=== PATIENT | male | born 1950 | race Caucasian/White ===

== ENCOUNTER 2021-11-13 16:24 | Inpatient (IN) ==
[2021-11-13 17:11] LABS: Basophils # (auto) 0.01 K/uL (0-0.2); Basophils % (auto) 0.1 %; Eosinophils # (auto) 0.17 K/uL (0-0.5); Eosinophils % (auto) 1.7 %; Hematocrit (blood only) 41.5 % (42-52); Hemoglobin 13.4 g/dL (14.0-18.0); Immature Granulocytes # (auto) 0.05 K/uL (0.00-0.02); Immature Granulocytes % (auto) 0.5 %; Lymphocytes % (auto) 9.8 %; Mean Corpuscular Hemoglobin 25.6 pg (25-34); Mean Corpuscular Hgb Conc 32.3 g/dL (32-36); Mean Corpuscular Volume 79.2 fL (80-100); Mean Platelet Volume 9.8 fL (7.4-10.4); Monocytes # (auto) 1.28 K/uL (0.11-0.59); Monocytes % (auto) 12.6 %; Neutrophils # (auto) 7.68 K/uL (1.4-6.5); Neutrophils % (auto) 75.3 %; Platelet Count 261 K/uL (130-400); RDW Coefficient of Variation 17.1 % (11.5-14.5); RDW Standard Deviation 49.2 fL (36.4-46.3); Red Blood Count 5.24 M/uL (4.7-6.1); White Blood Count 10.19 K/uL (4.8-10.8)
[2021-11-13 17:26] LABS: Albumin Globulin Ratio 0.7 (0.9-2); Albumin Level 3.6 gm/dl (3.4-5.0); BUN Creatinine Ratio 17.1 (10-20); Bilirubin,Total 0.7 mg/dl (0.2-1.0); Creatinine Clr Calc Pharmacy 88.6 ml/min; Est GFR (Non-African American) 71.6 ml/min; Globulin 5.2 gm/dl (2.5-4.0); Magnesium 1.8 mg/dl (1.7-2.4); Potassium 3.4 mmol/L (3.5-5.1); Total Protein 8.8 gm/dl (6.0-8.3)
[2021-11-13] MEDS ORDERED: cefTRIAXone SODIUM 2,000 MG/70 ML BAG IV STA (17:37)
[2021-11-13] MEDS ORDERED: PIPERACILLIN/TAZOBACTAM 4.5 GM/120 ML BAG IV ONE (17:38)
[2021-11-13] MEDS ORDERED: PIPERACILL/TAZOBAC CONSULT ACTIVE PRN (17:38)
--- NOTE | 2021-11-13 17:55 | XRay Report ---
XR chest 1V portable HISTORY: 71 years-old Male weakness acute weakness COMPARISON: None TECHNIQUE: AP view of the chest FINDINGS: The cardiomediastinal and hilar silhouettes are within normal limits. No pneumothorax, pleural effusi on, airspace consolidation or overt pulmonary edema. Hiatal hernia. Degenerative changes of the shoul ders and spine IMPRESSION: No acute process. ACT 112: Negative or not required by law. The above report was generated using voice recognition software. It may contain grammatical, syntax o r spelling errors. Electronically signed by: Shaka Dexter M.D. 11/13/2021 5:52 PM
[2021-11-13 17:57] LABS: Influenza A virus by PCR Negative (Neg); Influenza B virus by PCR Negative (Neg); RSV by PCR Negative (Neg); SARS CoV2 RNA(COVID-19) InHosp NEGATIVE (Negative)
[2021-11-13] MEDS ORDERED: POTASSIUM CHLORIDE CRTAB 20 MEQ TABCR PO STA (21:04)
--- NOTE | 2021-11-13 22:26 | Emergency Department Note ---
Impression & Plan Cellulitis, Venous stasis dermatitis of lower extremity ED Provider Note CHIEF COMPLAINT: Left lower extremity infection HISTORY OF PRESENT ILLNESS: This 71-year-old male patient presents to the emergency department via ambulance with his brother. The patient's and his brother are both checked in this patient due to chronic lower extremity wounds. Patient states the home health nurse was at their house today and evaluated the patient's legs. She was able to wrap the right lower extremity however the left lower extremity seems to be worsening. By report the patient's home is in depl orable condition. Apparently the nurse will only see the patient's outside of the home on the porch. By the patient's report he does not see the primary care physician frequently wound care clinic is "useless." She gets much of his care in [place]. He denies recently being on antibiotics. Patient denies any fevers, chills, chest pain or shortness of breath. REVIEW OF SYSTEMS: A review of systems was performed with positives and pertinent negatives listed in the history of present illness. 10 systems were reviewed and are otherwise negative. ALLERGIES: see below MEDICATIONS: see below PMH: see below SOCIAL HISTORY: see below DDx: DVT, musculoskeletal, infection, joint effusion, trauma, lymphedema, idiopathic, CHF, as well as other pathologies. PHYSICAL EXAM: Vital signs reviewed. General: Chronically ill-appearing, 71-year-old male, disheveled, unkempt but in no significant distress. HEENT: No scleral icterus, PERRLA, neck supple. Atraumatic. Cardiovascular: Regular rate and rhythm, no extra sounds. Pulmonary: Clear to auscultation bilaterally, normal work of breathing. Abdomen: Soft, obese, nontender, nondistended, positive bowel sounds. Musculoskeletal: Atraumatic, significant bilateral lower extremity edema. Left lower extremity with macerated tissue and active oozing. There is an ulcerated area to the left upper portion of the distal lower extremity. This is likely venous stasis changes. Chronic skin plaquing noted right greater than left. Neurologic: Patient awake alert and oriented x 3, speech is clear Skin: Warm, dry, no rash EMERGENCY DEPARTMENT COURSE/MDM: This patient was evaluated and appeared to be in no significant distress. Patient was notably unkempt and hygiene is poor. IV access was obtained and laboratory work was drawn. Blood cultures are pending. WBC and lactate are within normal limits. The patient was medicated w ith IV Zosyn. Given the patient's poor hygiene, multiple medical problems and difficult social situation, it was felt in the patient's best interest to address the 50% left lower extremity cellulitis with hospitalization. MONITORING: An order for cardiac monitoring was placed and the patient is noted to be in a NSR at 95 beats per minute. RADIOLOGY: see below EKG: NSR at 91 bpm, premature supraventricular complexes, possible previous inferior infarct. No acute ST segment change. Normal axis. 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 Beliefs That Will Affect Care: None Current Living Situation: Spouse and Family Current Living Situation Comment: lives at home with and brother Other Information That Helps Us Care for You: No Feels Safe at Home: Yes Safety Concerns: Feels Safe At This Time Assistive Devices: Cane Allergies Allergies Allergy/AdvReac Type Severity Reaction Status Date / Time adhesive tape Allergy Intermediate RASH/IRRITATION--PAPER Verified 11/13/21 17:14 TAPE OK Home Meds Home Medications Medication Instructions Recorded Confirmed Iron W/Vitamin C 1 tab PO DAILY 11/13/21 11/13/21 cyanocobalamin (vitamin B-12) 1,000 mcg PO DAILY 11/13/21 11/13/21 1,000 mcg tablet (Vitamin B-12) docusate sodium 100 mg capsule 100 mg PO DAILY 11/13/21 11/13/21 (Colace) finasteride 5 mg tablet 5 mg PO DAILY 11/13/21 11/13/21 furosemide 40 mg tablet (Lasix) 40 mg PO BID 11/13/21 11/13/21 omeprazole 40 mg capsule,delayed 40 mg PO DAILY 11/13/21 11/13/21 release potassium chloride 10 mEq 30 meq PO DAILY 11/13/21 11/13/21 capsule,extended release rosuvastatin 5 mg tablet 5 mg PO DAILY 11/13/21 11/13/21 sodium hypochlorite 0.25 % solution 1 irrig TOPICAL DIRECTED PRN 11/13/21 11/13/21 tamsulosin 0.4 mg capsule (Flomax) 0.4 mg PO DAILY 11/13/21 11/13/21 Results & Data (ED) Vital Signs Vital Signs - 24 hr 11/13/21 16:36 11/13/21 17:16 11/13/21 19:09 Temperature 36.7 C Temperature Source Oral Pulse Rate 109 H Pulse Rate [Right Finger] 93 H 94 H Pulse Rhythm Regular Pulse Rhythm [Right Finger] Regular Pulse Strength Normal Pulse Strength [Right Finger] Normal Respiratory Rate 20 18 20 Respiratory Effort / Characteristics Non-Labored Spontaneous Non-Labored Respiratory Depth Normal Normal Normal Respiratory Pattern Regular Blood Pressure 119/82 Blood Pressure [Right Arm] 119/62 121/87 Blood Pressure Mean 94 Blood Pressure Mean [Right Arm] 81 98 Blood Pressure Position Sitting Blood Pressure Position [Right Arm] Lying Pulse Oximetry 95 96 98 Oxygen Delivery Method Room Air Room Air Room Air Sepsis Recent Fever Within 48 Hours No Sepsis New/Unexplained Change in Mental Status N/A Sepsis Action Taken by Nursing No Action Required Home Medications Current Medication List: was personally reviewed by me Laboratory Data Attestation: I reviewed the patient's lab results. Result diagrams: 11/14/21 05:17 11/14/21 05:17 Lab Results 11/13/21 11/13/21 11/13/21 Range/Units 16:38 16:38 16:38 WBC 10.19 (4.8-10.8) K/uL RBC 5.24 (4.7-6.1) M/uL Hgb 13.4 L (14.0-18.0) g/dL Hct 41.5 L (42-52) % MCV 79.2 L (80-100) fL MCH 25.6 (25-34) pg MCHC 32.3 (32-36) g/dL RDW Std Deviation 49.2 H (36.4-46.3) fL RDW Coeff of Anjelica 17.1 H (11.5-14.5) % Plt Count 261 (130-400) K/uL MPV 9.8 (7.4-10.4) fL Immature Gran % (Auto) 0.5 % Neut % (Auto) 75.3 % Lymph % (Auto) 9.8 % [place] % (Auto) 12.6 % Eos % (Auto) 1.7 % Baso % (Auto) 0.1 % Neut # (Auto) 7.68 H (1.4-6.5) K/uL Lymph # (Auto) 1.00 L (1.2-3.4) K/uL [place] # (Auto) 1.28 H (0.11-0.59) K/uL Eos # (Auto) 0.17 (0-0.5) K/uL Baso # (Auto) 0.01 (0-0.2) K/uL Immature Gran # (Auto) 0.05 H (0.00-0.02) K/uL Sodium 136 (136-145) mmol/L Potassium 3.4 L (3.5-5.1) mmol/L Chloride 99 (98-107) mmol/L Carbon Dioxide 27 (21-32) mmol/L Anion Gap 10 (3-11) BUN 18 (6-23) mg/dl Creatinine 1.05 (0.6-1.4) mg/dl Est Cr Clr Drug Dosing 88.6 ml/min Est GFR ( Amer) 83.0 ml/min Est GFR (Non-Af Amer) 71.6 ml/min BUN/Creatinine Ratio 17.1 (10-20) Glucose 102 H (70-99(Fasting)) mg/dl Lactate (0.4-2.0) mmol/L Calcium 9.0 (8.5-10.1) mg/dl Magnesium 1.8 (1.7-2.4) mg/dl Total Bilirubin 0.7 (0.2-1.0) mg/dl AST 13 (13-39) U/L ALT 9 (7-52) U/L Alkaline Phosphatase 60 (34-104) U/L Troponin I High Sens 5.0 (0-20) pg/ml Total Protein 8.8 H (6.0-8.3) gm/dl Albumin 3.6 (3.4-5.0) gm/dl Globulin 5.2 H (2.5-4.0) gm/dl Albumin/Globulin Ratio 0.7 L (0.9-2) TSH 1.598 (0.300-4.500) uIu/ml SARS-CoV-2 (PCR) (Negative) Influenza Type A (PCR) (Neg) Influenza Type B (PCR) (Neg) RSV (RT-PCR) (Neg) 11/13/21 11/13/21 Range/Units 17:01 17:31 WBC (4.8-10.8) K/uL RBC (4.7-6.1) M/uL Hgb (14.0-18.0) g/dL Hct (42-52) % MCV (80-100) fL MCH (25-34) pg MCHC (32-36) g/dL RDW Std Deviation (36.4-46.3) fL RDW Coeff of Anjelica (11.5-14.5) % Plt Count (130-400) K/uL MPV (7.4-10.4) fL Immature Gran % (Auto) % Neut % (Auto) % Lymph % (Auto) % [place] % (Auto) % Eos % (Auto) % Baso % (Auto) % Neut # (Auto) (1.4-6.5) K/uL Lymph # (Auto) (1.2-3.4) K/uL [place] # (Auto) (0.11-0.59) K/uL Eos # (Auto) (0-0.5) K/uL Baso # (Auto) (0-0.2) K/uL Immature Gran # (Auto) (0.00-0.02) K/uL Sodium (136-145) mmol/L Potassium (3.5-5.1) mmol/L Chloride (98-107) mmol/L Carbon Dioxide (21-32) mmol/L Anion Gap (3-11) BUN (6-23) mg/dl Creatinine (0.6-1.4) mg/dl Est Cr Clr Drug Dosing ml/min Est GFR ( Amer) ml/min Est GFR (Non-Af Amer) ml/min BUN/Creatinine Ratio (10-20) Glucose (70-99(Fasting)) mg/dl Lactate 1.3 (0.4-2.0) mmol/L Calcium (8.5-10.1) mg/dl Magnesium (1.7-2.4) mg/dl Total Bilirubin (0.2-1.0) mg/dl AST (13-39) U/L ALT (7-52) U/L Alkaline Phosphatase (34-104) U/L Troponin I High Sens (0-20) pg/ml Total Protein (6.0-8.3) gm/dl Albumin (3.4-5.0) gm/dl Globulin (2.5-4.0) gm/dl Albumin/Globulin Ratio (0.9-2) TSH (0.300-4.500) uIu/ml SARS-CoV-2 (PCR) NEGATIVE (Negative) Influenza Type A (PCR) Negative (Neg) Influenza Type B (PCR) Negative (Neg) RSV (RT-PCR) Negative (Neg) Administered Medications Ascorbic Acid (Ascorbic Acid 500 Mg Tab) [facility]: 12/14/21 08:59 Last Admin: 11/14/21 07:52 Dose: 250 mg Documented by: [id number] Cyanocobalamin (Cyanocobalamin (B-12) 500 Mcg Tablet) 1,000 mcg PO DAILY [facility] Stop: 12/14/21 08:59 Last Admin: 11/14/21 07:53 Dose: 1,000 mcg Documented by: [id number] Docusate Sodium (Docusate Sodium 100 Mg Cap) 100 mg PO DAILY [facility] Stop: 12/14/21 08:59 Last Admin: 11/14/21 07:53 Dose: 100 mg Documented by: [id number] Enoxaparin Sodium (Enoxaparin Inj 40 Mg/0.4 Ml Syr) 40 mg SQ Q12H [facility] Stop: 12/14/21 00:00 Last Admin: 11/14/21 00:17 Dose: 40 mg Documented by: [id number] Ferrous Sulfate (Ferrous Sulfate 325 Mg Tab) 325 mg PO QAM [facility] Stop: 12/14/21 08:59 Last Admin: 11/14/21 07:53 Dose: 325 mg Documented by: [id number] Finasteride (Finasteride 5 Mg Tab) 5 mg PO DAILY [facility] Stop: 12/14/21 08:59 Last Admin: 11/14/21 07:54 Dose: 5 mg Documented by: [id number] Furosemide (Furosemide 40 Mg Tab) 40 mg PO [id number] [facility] Stop: 12/13/21 23:20 Last Admin: 11/14/21 07:53 Dose: 40 mg Documented by: [id number] Admin: 11/13/21 23:37 Dose: Not Given Documented by: [id number] Daptomycin 400 mg/ Syringe 8 mls @ 4 mls/min IV Q24H [facility]; Protocol Stop: 11/21/21 00:00 Last Admin: 11/14/21 00:15 Dose: 4 mls/min Documented by: [id number] Piperacillin Sod/Tazobactam (Sod 4.5 gm/ Dextrose) 120 mls @ 30 mls/hr IV Q8H [facility]; Protocol Stop: 11/21/21 00:00 Last Admin: 11/14/21 07:51 Dose: 30 mls/hr Documented by: [id number] Infusion: 11/14/21 04:48 Dose: 0 mls/hr Documented by: [id number] Admin: 11/14/21 00:18 Dose: 30 mls/hr Documented by: [id number] Pantoprazole Sodium (Pantoprazole 40 Mg Tab) 40 mg PO DAILY [facility] Stop: 12/14/21 08:59 Last Admin: 11/14/21 07:54 Dose: 40 mg Documented by: [id number] Potassium Chloride (Potassium Chloride 10 Meq Tabcr) 30 meq PO DAILY [facility] Stop: 12/14/21 08:59 Last Admin: 11/14/21 07:53 Dose: 30 meq Documented by: [id number] Tamsulosin HCl (Tamsulosin Hcl 0.4 Mg Cap) 0.4 mg PO DAILY [facility] Stop: 12/14/21 08:59 Last Admin: 11/14/21 07:54 Dose: 0.4 mg Documented by: [id number] Discontinued Medications Ceftriaxone Sodium (Rocephin) 2,000 mg in 70 mls @ 140 mls/hr IV NOW STA Stop: 11/13/21 18:06 Last Infusion: 11/13/21 18:23 Dose: 0 mls/hr Documented by: [id number] Admin: 11/13/21 17:49 Dose: 140 mls/hr Documented by: [id number] Piperacillin Sod/Tazobactam Sod (Zosyn) 4.5 gm in 120 mls @ 240 mls/hr IV NOW ONE Stop: 11/13/21 18:07 Last Infusion: 11/13/21 19:17 Dose: 0 mls/hr Documented by: [id number] Admin: 11/13/21 18:20 Dose: 240 mls/hr Documented by: [id number] Potassium Chloride (Potassium Chloride Crtab 20 Meq Tabcr) 20 meq PO NOW STA Stop: 11/13/21 21:05 Last Admin: 11/13/21 21:15 Dose: 20 meq Documented by: [id number] Imaging Data Radiologist's Impression: Chest X-Ray 11/13/21 16:50 XR chest 1V portable HISTORY: 71 years-old Male weakness acute weakness COMPARISON: None TECHNIQUE: AP view of the chest FINDINGS: The cardiomediastinal and hilar silhouettes are within normal limits. No pneumothorax, pleural effusion, airspace consolidation or overt pulmonary edema. Hiatal hernia. Degenerative changes of the shoulders and spine IMPRESSION: No acute process. ACT 112: Negative or not required by law. The above report was generated using voice recognition software. It may contain grammatical, syntax or spelling errors. Electronically signed by: Shaka Dexter M.D. 11/13/2021 5:52 PM Blood Pressure Blood Pressure Findings: Normal blood pressure Blood Pressure Disposition: did not require urgent referral Discharge Plan Visit Data Chief Complaint: Skin Problem ED Provider: Leela Hearn Discharge Problem: Cellulitis, Venous stasis dermatitis of lower extremity Patient Disposition: Admitted As Inpatient Discharge Instructions Interventions: ED Discharge Assessment Last Done: 11/13/21 22:33 Discharge Problem: Cellulitis Qualifiers: Site of cellulitis: extremity Site of cellulitis of extremity: lower extremity Laterality: left Qualified Code(s): L03.116 - Cellulitis of left lower limb
[2021-11-13] MEDS ORDERED: ACETAMINOPHEN 325 MG TAB PO PRN (23:21)
[2021-11-13] MEDS ORDERED: POLYETHYLENE (MIRALAX) 17 GM PACK PO PRN (23:21)
--- NOTE | 2021-11-13 23:28 | History and Physical Report ---
DATE OF ADMISSION: 11/13/2021. CHIEF COMPLAINT: Lower extremity cellulitis. HISTORY OF PRESENT ILLNESS: This is a 71-year-old male with past medical history significant for mixed hyperlipidemia, prediabetes, chronic venous insufficiency with grade 1 diastolic dysfunction, morbid obesity, GERD, history of renal colic, peripheral edema, onychogryphosis, iron deficiency anemia, history of esophagitis, history of COVID, severe acute respiratory syndrome secondary to COVID, presents with lower extremity cellulitis. The patient has lower extremity chronic skin changes, dry skin, edema. He says he has on and off infection going on for 1 year, now his left lower extremity has become very red, and that is the reason he came to the hospital. Denies any fever or chills. Able to ambulate on the leg. No other complaints. Currently, resting comfortably and hemodynamically stable. Denies any headache. No blurred visions, no earache, no runny nose, no sore throat, no cough, no neck pain, no chest pain. Gets short of breath on exertion. No nausea, no vomiting, no abdominal pain. Normal bowel and bladder movements. ALLERGIES: ADHESIVE TAPE. PAST MEDICAL HISTORY: As mentioned above. PAST SURGICAL HISTORY: Colonoscopy, cystoscopy, EGD, partial colectomy with coloproctostomy, inguinal hernia repair. MEDICATIONS: The patient is on vitamin B12 1000 mcg p.o. daily, Colace 100 mg p.o. daily, finasteride 5 mg p.o. daily, Lasix 40 mg p.o. b.i.d., iron plus vitamin C one tablet p.o. daily, omeprazole 40 mg p.o. daily, potassium chloride 30 mEq p.o. daily, rosuvastatin 5 mg p.o. daily, Flomax 0.4 mg p.o. daily. FAMILY HISTORY: Significant for brother has venous insufficiency. SOCIAL HISTORY: and lives with his and his brother. No smoking, no alcohol, no drug use. REVIEW OF SYSTEMS: As per HPI. Rest of review of systems negative. PHYSICAL EXAMINATION: GENERAL: The patient is morbidly obese, not in acute distress. VITAL SIGNS: Temperature 36.7, pulse 94, respiratory rate 20, blood pressure 121/87, oxygen 98% on room air. HEENT: Pupils equal, round and reactive to light. Oral mucosa moist. NECK: No JVD, no neck masses. CARDIOVASCULAR: S1 and S2 heard. Regular rate and rhythm. No murmur, no gallop. RESPIRATORY SYSTEM: Normal AP diameter. No accessory muscle use. No wheezing, no crackles. ABDOMEN: Soft, bowel sounds present, nontender, no distention. CENTRAL NERVOUS SYSTEM: Cranial nerves II through XII are grossly intact, nonfocal. EXTREMITIES: Bilateral lower extremity chronic skin changes seen. Right leg has dry skin seen. Bilateral lower extremity edema present. Left leg below knee whole leg is erythematous. LABORATORY DATA: WBC 10.1, hemoglobin 13.4, hematocrit 41.5, platelets 261. Sodium 136, potassium 3.4, chloride 99, bicarbonate 27, BUN 18, creatinine 1.05. Serum glucose 102. Lactate 1.3, calcium 9, magnesium 1.8, total bilirubin 0.7, AST 13, ALT 9, alkaline phosphatase 60. Troponin I high sensitivity 5. TSH 1.5. SARS-CoV-2 PCR negative. Influenza A and B PCR negative. RSV PCR negative. IMAGING DATA: Chest x-ray, no acute process. EKG: Normal sinus rhythm with PACs at a rate of 91, no previous EKGs available. ASSESSMENT AND PLAN: This 71-year-old male presents with lower extremity cellulitis. 1. Left lower extremity cellulitis: Empirically starting on daptomycin and Zosyn. Wound care. Follow the cultures. Follow the response. Monitor in the medical floor. 2. Chronic diastolic congestive heart failure: Continue his home Lasix with potassium supplement. Monitor for any volume overload. 3. History of benign prostatic hypertrophy: Continue finasteride and Flomax. 4. Prediabetes: Follow the HbA1c level, diabetic diet. 5. Gastroesophageal reflux disease: Continue omeprazole. 6. Hyperlipidemia: Holding statin while the patient is on daptomycin. 7. Deep venous thrombosis prophylaxis: Lovenox. 8. Morbid obesity: Needs counseling. DISPOSITION: Monitor in the [facility] tele. PT/OT prior to discharge. Social service to help with discharge planning. Level I full code. Job ID: [id number] [facility]
[2021-11-13] MEDS: FUROSEMIDE 40 MG TAB PO SCH (23:37)
[2021-11-14] MEDS: DAPTOmycin 400 MG in SYRINGE 0 ML IV SCH (00:15)
[2021-11-14] MEDS: ENOXAPARIN INJ 40 MG/0.4 ML SYR SQ SCH ×2 (00:17→12:04)
[2021-11-14] MEDS: PIPERACILLIN/TAZOBACTAM 4.5 GM in DEXTROSE 5% 100 ML IV SCH ×3 (00:18→17:02)
[2021-11-14 05:46] LABS: Basophils # (auto) 0.01 K/uL (0-0.2); Basophils % (auto) 0.1 %; Eosinophils # (auto) 0.15 K/uL (0-0.5); Eosinophils % (auto) 1.8 %; Hematocrit (blood only) 38.3 % (42-52); Hemoglobin 12.3 g/dL (14.0-18.0); Immature Granulocytes # (auto) 0.03 K/uL (0.00-0.02); Immature Granulocytes % (auto) 0.4 %; Lymphocytes # (auto) 1.35 K/uL (1.2-3.4); Lymphocytes % (auto) 16.1 %; Mean Corpuscular Hgb Conc 32.1 g/dL (32-36); Mean Platelet Volume 9.9 fL (7.4-10.4); Monocytes # (auto) 1.05 K/uL (0.11-0.59); Monocytes % (auto) 12.5 %; Neutrophils # (auto) 5.79 K/uL (1.4-6.5); Neutrophils % (auto) 69.1 %; Platelet Count 231 K/uL (130-400); RDW Coefficient of Variation 17.1 % (11.5-14.5); RDW Standard Deviation 51.3 fL (36.4-46.3); Red Blood Count 4.73 M/uL (4.7-6.1); White Blood Count 8.38 K/uL (4.8-10.8)
[2021-11-14 06:25] LABS: BUN Creatinine Ratio 19.8 (10-20); Calcium 8.6 mg/dl (8.5-10.1); Creatinine Clr Calc Pharmacy 100.6 ml/min; Est GFR (African American) 98.6 ml/min; Est GFR (Non-African American) 85.1 ml/min; Potassium 3.4 mmol/L (3.5-5.1)
[2021-11-14 06:28] LABS: Appearance Urine Clear (Clear); Bacteria Urine Automated Negative (Negative); Bilirubin Urine Negative (Negative); Blood Urine Negative (Negative); Color Urine Yellow; Glucose Urine UA Negative (Negative); Ketones Urine Negative (Negative); Leukocyte Esterase Urine Trace (Negative); Nitrite Urine Negative (Negative); Protein Urine Negative (Negative); RBC Urine Automated 0-4 /hpf (0-4); Specific Gravity Urine 1.024 (1.000-1.030); Urobilinogen Urine Negative (Negative)
[2021-11-14] MEDS: ASCORBIC ACID 500 MG TAB PO SCH (07:52)
[2021-11-14] MEDS: CYANOCOBALAMIN (B-12) 500 MCG TABLET PO SCH (07:53)
[2021-11-14] MEDS: FUROSEMIDE 40 MG TAB PO SCH ×2 (07:53→17:01)
[2021-11-14] MEDS: FERROUS SULFATE 325 MG TAB PO SCH (07:53)
[2021-11-14] MEDS: POTASSIUM CHLORIDE 10 MEQ TABCR PO SCH (07:53)
[2021-11-14] MEDS: DOCUSATE SODIUM 100 MG CAP PO SCH (07:53)
[2021-11-14] MEDS: FINASTERIDE 5 MG TAB PO SCH (07:54)
[2021-11-14] MEDS: TAMSULOSIN HCL 0.4 MG CAP PO SCH (07:54)
[2021-11-14] MEDS: PANTOprazole 40 MG TAB PO SCH (07:54)
[2021-11-14] MEDS ORDERED: VITAMIN C PO SCH (09:00)
[2021-11-14] MEDS ORDERED: IRON PO SCH (09:00)
[2021-11-14 09:02] LABS: Estimated Average Glucose 126 mg/dl
--- NOTE | 2021-11-14 09:48 | Ultrasound Report ---
US venous doppler LE BI CLINICAL HISTORY: Bilateral foot swelling. COMPARISON: None available at the time of this dictation. TECHNIQUE: Bilateral lower extremity real-time compression venous ultrasound with Color Doppler imagi ng. Utilizing real-time ultrasonic imaging multiple real time high-resolution ultrasonic images with comp ression and noncompression maneuvers of the deep venous system in addition to color doppler imaging w ere performed from the common femoral vein through the proximal calf veins. FINDINGS: Currently there is normal compressibility of the deep venous system from the common femoral vein thro ugh the proximal calf veins. No current evidence of acute thrombosis is identified. Impression: No evidence of deep venous thrombus. ACT 112: Negative or not required by law. Electronically signed by: Shawn Monsalve M.D. 11/14/2021 9:46 AM
--- NOTE | 2021-11-14 14:46 | Electrocardiogram Report ---
Test Reason : Blood Pressure : / mmHG Vent. Rate : 091 BPM Atrial Rate : 091 BPM P-R Int : 194 ms QRS Dur : 080 ms QT Int : 368 ms P-R-T Axes : 042 -04 037 degrees QTc Int : 452 ms Sinus rhythm with Premature supraventricular complexes Possible Inferior infarct , age undetermined Abnormal ECG No previous ECGs available Confirmed by Andres Wynne ([id number]) on 11/14/2021 2:45:26 PM Referred By: REFERRED SELF Confirmed By:Steve Wynne
--- NOTE | 2021-11-14 16:35 | Hospitalist Progress Note ---
Date of Service November 14, 2021 Assessment & Plan (1) Cellulitis: Plan: Patient is a 71 yr male presents with lower extremity cellulitis. B/L LE Cellulitis: --Venous Doppler: No evidence of deep venous thrombus. --Arterial Doppler:pending Blood cultures pending Continue Zosyn, daptomycin Continue wound care Continue home diuretics Chronic diastolic congestive heart failure: Continue lasix Monitor volume status Hypokalemia Continue potassium supplement BPH Continue finasteride and Flomax Prediabetes: HbA1C: 6.0 Diabetic diet GERD Continue PPI Hyperlipidemia: Holding statin while on daptomycin Morbid obesity: BMI:47 DVT Px: Lovenox SQ Code Status Full Code DISPOSITION: PT/OT prior to discharge. Admission and Anticipated Discharge Date Admission Date: November 13, 2021 Subjective Patient is seen and examined at bedside Reports bilateral lower extremity erythema, swelling Denies any leg pain Also denies any chest pain, shortness of breath, dizziness, nausea, abdominal pain Offers no other complaints Review of Systems Review of Systems: All systems reviewed & are unremarkable except as noted in Subjective Physical Exam Physical Exam: Physical Exam: Vitals signs as noted above General Appearance:Morbidly Obese, no apparent distress Head: normocephalic, Atraumatic Eyes: normal inspection, EOMI Neck: supple, Trachea midline Respiratory/Chest: Normal breath sounds, CTA, No accessory muscle use Cardiovascular: S1, S2, No murmur Abdomen/GI:Soft, Non tender, Bowel sounds present Extremities/Musculoskeletal:normal inspection, B/L LE erythema, edema, chronic venous stasis changes Neurologic/Psych:AAOX3, grossly no focal neurological deficits Skin: normal color, warm Results & Data Results & Data ([facility]) Vital Signs (Past 12 Hours) Vital Signs Temp Pulse Pulse Resp BP Pulse Ox 11/14/21 16:15 77 11/14/21 15:04 36.6 C 93 H 18 159/73 H 94 11/14/21 12:00 36.5 C 86 18 118/71 94 11/14/21 07:20 77 11/14/21 07:12 36.7 C 78 18 124/77 93 Laboratory Results Short CBC 11/13/21 11/14/21 Range/Units 16:38 05: WBC 10.19 8.38 (4.8-10.8) K/uL Hgb 13.4 L 12.3 L (14.0-18.0) g/dL Hct 41.5 L 38.3 L (42-52) % Plt Count 261 231 (130-400) K/uL BMP 11/13/21 11/14/21 16:38 05:17 Sodium 136 138 Potassium 3.4 L 3.4 L Chloride 99 103 Carbon Dioxide 27 27 BUN 18 18 Creatinine 1.05 0.91 Glucose 102 H 106 H Calcium 9.0 8.6 Liver Function 11/13/21 Range/Units 16:38 Total Bilirubin 0.7 (0.2-1.0) mg/dl AST 13 (13-39) U/L ALT 9 (7-52) U/L Alkaline Phosphatase 60 (34-104) U/L Albumin 3.6 (3.4-5.0) gm/dl Urine 11/14/21 Range/Units 06:00 Urine Color Yellow Urine Appearance Clear (Clear) Urine pH 5.0 (4.5-7.5) Ur Specific [place] 1.024 (1.000-1.030) Urine Protein Negative (Negative) Urine Glucose (UA) Negative (Negative) (1) Cellulitis Laterality: left Site of cellulitis: extremity Site of cellulitis of extremity: lower extremity Qualified Code(s): L03.116 - Cellulitis of left lower limb
--- NOTE | 2021-11-14 17:56 | Ultrasound Report ---
ULTRASOUND BILATERAL LOWER EXTREMITY ARTERIAL CLINICAL HISTORY: Peripheral vascular disease. Lower extremity edema and erythema. COMPARISON STUDY: No priors. FINDINGS: Real-time, grayscale, and color Doppler sonography of the arteries of the right and left lo wer extremities was performed from the anal crease to the foot. FINDINGS: Right lower extremity: There is only mild atherosclerotic plaque identified throughout the arteries o f the right lower extremity. There are triphasic arterial waveforms in the common femoral artery with velocities measuring up to 40 cm/s. The profunda femoris artery is patent with velocities measuring up to 97 cm/s. Triphasic waveforms are seen throughout the superficial femoral and popliteal arteries . Velocities in the superficial femoral artery measure up to 113 cm/s, and velocities in the poplitea l artery measure up to 83 cm/s. There is three-vessel runoff to the foot. Velocities in the calf celina marion measure up to 92 cm/s. The dorsalis pedis artery is patent with velocities measuring up to 65 cm /s. Left lower extremity: Mild atherosclerotic calcification is seen throughout the arteries of the left lower extremity. There are triphasic arterial waveforms in the common femoral artery with velocities measuring up to 154 cm/s. The profunda femoris artery is patent with velocities measuring up to 73 cm /s. Triphasic waveforms are seen throughout the superficial femoral and popliteal arteries. Velociti es in the superficial femoral artery measure up to 114 cm/s and velocities in the popliteal artery me asure up to 90 cm/s. There is three-vessel runoff to the foot with velocities measuring up to 99 cm/s . The dorsalis pedis artery is patent with velocities measuring up to 37 cm/s. IMPRESSION: There is no sonographic evidence of high-grade stenosis or focal vessel cutoff throughout the arteries of the right or left lower extremity. Dictated: 11/14/2021 5:09 PM Transcribed: 11/14/2021 5:39 PM Alee [id number] [email or web address] Electronically signed by: Louis Escudero M.D. 11/14/2021 5:54 PM
[2021-11-15] MEDS: ENOXAPARIN INJ 40 MG/0.4 ML SYR SQ SCH ×3 (01:11→23:42)
[2021-11-15] MEDS: PIPERACILLIN/TAZOBACTAM 4.5 GM in DEXTROSE 5% 100 ML IV SCH ×4 (01:13→23:35)
[2021-11-15] MEDS: DAPTOmycin 400 MG in SYRINGE 0 ML IV SCH ×2 (01:14→23:36)
[2021-11-15 08:27] LABS: Hemoglobin 12.2 g/dL (14.0-18.0); Mean Corpuscular Hemoglobin 25.6 pg (25-34); Mean Corpuscular Hgb Conc 32.1 g/dL (32-36); Mean Corpuscular Volume 79.8 fL (80-100); Platelet Count 241 K/uL (130-400); RDW Coefficient of Variation 17.4 % (11.5-14.5); RDW Standard Deviation 51.1 fL (36.4-46.3); Red Blood Count 4.76 M/uL (4.7-6.1); White Blood Count 6.86 K/uL (4.8-10.8)
[2021-11-15 08:56] LABS: BUN Creatinine Ratio 19.4 (10-20); Calcium 8.6 mg/dl (8.5-10.1); Creatinine Clr Calc Pharmacy 93.4 ml/min; Est GFR (African American) 90.2 ml/min; Est GFR (Non-African American) 77.8 ml/min; Magnesium 2.2 mg/dl (1.7-2.4); Potassium 3.1 mmol/L (3.5-5.1)
[2021-11-15] MEDS: FERROUS SULFATE 325 MG TAB PO SCH (09:07)
[2021-11-15] MEDS: PANTOprazole 40 MG TAB PO SCH (09:07)
[2021-11-15] MEDS: POTASSIUM CHLORIDE 10 MEQ TABCR PO SCH (09:08)
[2021-11-15] MEDS: ASCORBIC ACID 500 MG TAB PO SCH (09:08)
[2021-11-15] MEDS: CYANOCOBALAMIN (B-12) 500 MCG TABLET PO SCH (09:08)
[2021-11-15] MEDS: FINASTERIDE 5 MG TAB PO SCH (09:09)
[2021-11-15] MEDS: DOCUSATE SODIUM 100 MG CAP PO SCH (09:09)
[2021-11-15] MEDS: TAMSULOSIN HCL 0.4 MG CAP PO SCH (09:09)
[2021-11-15] MEDS: FUROSEMIDE 40 MG TAB PO SCH ×2 (09:10→17:15)
--- NOTE | 2021-11-15 17:18 | Hospitalist Progress Note ---
Date of Service November 15, 2021 Assessment & Plan (1) Cellulitis: Plan: Patient is a 71 yr male presents with lower extremity cellulitis. B/L LE Cellulitis: --Venous Doppler: No evidence of deep venous thrombus. --Arterial Doppler:There is no sonographic evidence of high-grade stenosis or focal vessel cutoff throughout the arteries of the right or left lower extremity. Blood cultures: No growth to date Continue Zosyn, daptomycin Continue wound care Continue home diuretics Chronic diastolic congestive heart failure: Continue lasix Monitor volume status Hypokalemia Continue potassium supplement BPH Continue finasteride and Flomax Prediabetes: HbA1C: 6.0 Diabetic diet GERD Continue PPI Hyperlipidemia: Holding statin while on daptomycin Morbid obesity: BMI:47 DVT Px: Lovenox SQ Code Status Full Code DISPOSITION: PT/OT prior to discharge. Admission and Anticipated Discharge Date Admission Date: November 13, 2021 Subjective Patient is seen and examined at bedside No new complaints Leg erythema slowly improving Denies any chest pain, shortness of breath, dizziness, nausea, abdominal pain Offers no other complaints Review of Systems Review of Systems: All systems reviewed & are unremarkable except as noted in Subjective Physical Exam Physical Exam: Physical Exam: Vitals signs as noted above General Appearance:Morbidly Obese, no apparent distress Head: normocephalic, Atraumatic Eyes: normal inspection, EOMI Neck: supple, Trachea midline Respiratory/Chest: Normal breath sounds, CTA, No accessory muscle use Cardiovascular: S1, S2, No murmur Abdomen/GI:Soft, Non tender, Bowel sounds present Extremities/Musculoskeletal:normal inspection, B/L LE erythema, edema, chronic venous stasis changes Neurologic/Psych:AAOX3, grossly no focal neurological deficits Skin: normal color, warm Results & Data Results & Data ([facility]) Vital Signs (Past 12 Hours) Vital Signs Temp Pulse Pulse Resp BP Pulse Ox 11/15/21 14:50 36.5 C 87 20 154/81 H 94 11/15/21 14:16 81 11/15/21 10:54 85 18 137/77 96 11/15/21 07:00 36.9 C 85 20 135/75 94 11/15/21 06:13 83 (1) Cellulitis Laterality: left Site of cellulitis: extremity Site of cellulitis of extremity: lower extremity Qualified Code(s): L03.116 - Cellulitis of left lower limb
[2021-11-15] MEDS: POTASSIUM CHLORIDE CRTAB 20 MEQ TABCR PO SCH (20:23)
[2021-11-16 08:35] LABS: Calcium 8.5 mg/dl (8.5-10.1); Creatinine Clr Calc Pharmacy 86.3 ml/min; Est GFR (Non-African American) 70.8 ml/min; Potassium 3.3 mmol/L (3.5-5.1)
[2021-11-16] MEDS ORDERED: POTASSIUM CHLORIDE CRTAB 20 MEQ TABCR PO ONE (09:10)
[2021-11-16] MEDS: FINASTERIDE 5 MG TAB PO SCH (09:23)
[2021-11-16] MEDS: CYANOCOBALAMIN (B-12) 500 MCG TABLET PO SCH (09:24)
[2021-11-16] MEDS: PANTOprazole 40 MG TAB PO SCH (09:24)
[2021-11-16] MEDS: ASCORBIC ACID 500 MG TAB PO SCH (09:24)
[2021-11-16] MEDS: FUROSEMIDE 40 MG TAB PO SCH ×2 (09:24→15:34)
[2021-11-16] MEDS: DOCUSATE SODIUM 100 MG CAP PO SCH (09:24)
[2021-11-16] MEDS: TAMSULOSIN HCL 0.4 MG CAP PO SCH (09:24)
[2021-11-16] MEDS: POTASSIUM CHLORIDE CRTAB 20 MEQ TABCR PO SCH ×2 (09:25→21:17)
[2021-11-16] MEDS: PIPERACILLIN/TAZOBACTAM 4.5 GM in DEXTROSE 5% 100 ML IV SCH ×3 (09:25→23:37)
[2021-11-16] MEDS: FERROUS SULFATE 325 MG TAB PO SCH (09:25)
[2021-11-16] MEDS: ENOXAPARIN INJ 40 MG/0.4 ML SYR SQ SCH ×2 (13:59→23:36)
--- NOTE | 2021-11-16 18:22 | Hospitalist Progress Note ---
Date of Service November 16, 2021 Assessment & Plan (1) Cellulitis: Plan: Patient is a 71 yr male presents with lower extremity cellulitis. B/L LE Cellulitis: --Venous Doppler: No evidence of deep venous thrombus. --Arterial Doppler:There is no sonographic evidence of high-grade stenosis or focal vessel cutoff throughout the arteries of the right or left lower extremity. Blood cultures: No growth to date Continue Zosyn, daptomycin Continue wound care Continue home diuretics Continue current management Replace electrolytes as needed Needs follow-up with wound clinic upon discharge Chronic diastolic congestive heart failure: Continue lasix Monitor volume status Hypokalemia Continue potassium supplement BPH Continue finasteride and Flomax Prediabetes: HbA1C: 6.0 Diabetic diet GERD Continue PPI Hyperlipidemia: Holding statin while on daptomycin Morbid obesity: BMI:47 DVT Px: Lovenox SQ Code Status Full Code DISPOSITION: PT/OT prior to discharge. Admission and Anticipated Discharge Date Admission Date: November 13, 2021 Subjective Patient is seen and examined at bedside States feeling well Offers no new complaints Still has Leg edema Denies any leg pain Also denies any chest pain, shortness of breath, dizziness, nausea, abdominal pain Review of Systems Review of Systems: All systems reviewed & are unremarkable except as noted in Subjective Physical Exam Physical Exam: Physical Exam: Vitals signs as noted above General Appearance:Morbidly Obese, no apparent distress Head: normocephalic, Atraumatic Eyes: normal inspection, EOMI Neck: supple, Trachea midline Respiratory/Chest: Normal breath sounds, CTA, No accessory muscle use Cardiovascular: S1, S2, No murmur Abdomen/GI:Soft, Non tender, Bowel sounds present Extremities/Musculoskeletal:normal inspection, B/L LE erythema, edema, chronic venous stasis changes Neurologic/Psych:AAOX3, grossly no focal neurological deficits Skin: normal color, warm Results & Data Results & Data ([facility]) Vital Signs (Past 12 Hours) Vital Signs Temp Pulse Pulse Resp BP Pulse Ox 11/16/21 16:01 36.7 C 89 20 148/83 H 94 11/16/21 15:45 91 H 11/16/21 11:23 36.7 C 90 18 134/62 92 11/16/21 10:21 78 11/16/21 06:28 36.9 C 81 16 123/75 95 Laboratory Results [facility] 11/16/21 07:45 Sodium 139 Potassium 3.3 L Chloride 104 Carbon Dioxide 28 BUN 18 Creatinine 1.06 Glucose 98 Calcium 8.5 (1) Cellulitis Laterality: left Site of cellulitis: extremity Site of cellulitis of extremity: lower extremity Qualified Code(s): L03.116 - Cellulitis of left lower limb
[2021-11-16] MEDS: DAPTOmycin 400 MG in SYRINGE 0 ML IV SCH (23:36)
[2021-11-17 07:56] LABS: BUN Creatinine Ratio 16.5 (10-20); Calcium 8.5 mg/dl (8.5-10.1); Creatinine Clr Calc Pharmacy 88.9 ml/min; Est GFR (African American) 84.9 ml/min; Est GFR (Non-African American) 73.3 ml/min; Magnesium 2.2 mg/dl (1.7-2.4)
[2021-11-17] MEDS ORDERED: POTASSIUM CHLORIDE CRTAB 20 MEQ TABCR PO ONE (08:14)
[2021-11-17] MEDS: PIPERACILLIN/TAZOBACTAM 4.5 GM in DEXTROSE 5% 100 ML IV SCH ×3 (09:55→23:26)
[2021-11-17] MEDS: CYANOCOBALAMIN (B-12) 500 MCG TABLET PO SCH (10:34)
[2021-11-17] MEDS: ASCORBIC ACID 500 MG TAB PO SCH (10:34)
[2021-11-17] MEDS: FINASTERIDE 5 MG TAB PO SCH (10:35)
[2021-11-17] MEDS: FERROUS SULFATE 325 MG TAB PO SCH (10:35)
[2021-11-17] MEDS: DOCUSATE SODIUM 100 MG CAP PO SCH (10:35)
[2021-11-17] MEDS: PANTOprazole 40 MG TAB PO SCH (10:35)
[2021-11-17] MEDS: FUROSEMIDE 40 MG TAB PO SCH ×2 (10:35→16:36)
[2021-11-17] MEDS: TAMSULOSIN HCL 0.4 MG CAP PO SCH (10:35)
[2021-11-17] MEDS: POTASSIUM CHLORIDE CRTAB 20 MEQ TABCR PO SCH ×2 (10:57→20:45)
[2021-11-17] MEDS: POTASSIUM CHLORIDE / WTR 10 MEQ/100 ML PLCT IV SCH ×2 (11:07→12:09)
[2021-11-17] MEDS: ENOXAPARIN INJ 40 MG/0.4 ML SYR SQ SCH ×2 (12:09→23:25)
[2021-11-17] MEDS: LACTOBACILLUS ACIDOPHILUS 1 GM PACK PO SCH (16:36)
--- NOTE | 2021-11-17 17:45 | Hospitalist Progress Note ---
Date of Service November 17, 2021 Assessment & Plan (1) Cellulitis: Plan: Patient is a 71 yr male presents with lower extremity cellulitis. B/L LE Cellulitis: --Venous Doppler: No evidence of deep venous thrombus. --Arterial Doppler:There is no sonographic evidence of high-grade stenosis or focal vessel cutoff throughout the arteries of the right or left lower extremity. Blood cultures: No growth to date Continue Zosyn, daptomycin Continue wound care Continue home diuretics Replace electrolytes as needed Needs follow-up with wound clinic upon discharge Consider to change IV antibiotics to p.o. tomorrow Chronic diastolic congestive heart failure: Continue lasix Monitor volume status Hypokalemia Continue potassium supplement BPH Continue finasteride and Flomax Prediabetes: HbA1C: 6.0 Diabetic diet GERD Continue PPI Hyperlipidemia: Holding statin while on daptomycin Morbid obesity: BMI:47 DVT Px: Lovenox SQ Code Status Full Code Admission and Anticipated Discharge Date Admission Date: November 13, 2021 Subjective Patient is seen and examined at bedside States having minimal leg seepage Had Loose BM today Denies any chest pain, shortness of breath, dizziness, nausea, abdominal pain Review of Systems Review of Systems: All systems reviewed & are unremarkable except as noted in Subjective Physical Exam Physical Exam: Physical Exam: Vitals signs as noted above General Appearance:Morbidly Obese, no apparent distress Head: normocephalic, Atraumatic Eyes: normal inspection, EOMI Neck: supple, Trachea midline Respiratory/Chest: Normal breath sounds, CTA, No accessory muscle use Cardiovascular: S1, S2, No murmur Abdomen/GI:Soft, Non tender, Bowel sounds present Extremities/Musculoskeletal:normal inspection, B/L LE erythema, edema, chronic venous stasis changes Neurologic/Psych:AAOX3, grossly no focal neurological deficits Skin: normal color, warm Results & Data Results & Data ([facility]) Vital Signs (Past 12 Hours) Vital Signs Temp Pulse Pulse Resp BP Pulse Ox 11/17/21 14:32 36.6 C 80 20 110/66 95 11/17/21 11:00 36.6 C 79 20 144/73 H 94 11/17/21 09:41 68 11/17/21 06:18 36.6 C 73 18 130/78 97 Laboratory Results [facility] 11/17/21 05:41 Sodium 137 Potassium 3.0 L Chloride 101 Carbon Dioxide 30 BUN 17 Creatinine 1.03 Glucose 88 Calcium 8.5 (1) Cellulitis Laterality: left Site of cellulitis: extremity Site of cellulitis of extremity: lower extremity Qualified Code(s): L03.116 - Cellulitis of left lower limb
[2021-11-17] MEDS: DAPTOmycin 400 MG in SYRINGE 0 ML IV SCH (23:26)
[2021-11-18] MEDS ORDERED: POTASSIUM CHLORIDE CRTAB 20 MEQ TABCR PO STA (06:37)
[2021-11-18 06:55] LABS: BUN Creatinine Ratio 17.4 (10-20); Calcium 8.8 mg/dl (8.5-10.1); Creatinine Clr Calc Pharmacy 99.5 ml/min; Est GFR (African American) 97.3 ml/min; Potassium 3.5 mmol/L (3.5-5.1)
[2021-11-18] MEDS: PIPERACILLIN/TAZOBACTAM 4.5 GM in DEXTROSE 5% 100 ML IV SCH (07:28)
[2021-11-18] MEDS: POTASSIUM CHLORIDE CRTAB 20 MEQ TABCR PO SCH (07:30)
[2021-11-18] MEDS: TAMSULOSIN HCL 0.4 MG CAP PO SCH (07:31)
[2021-11-18] MEDS: FERROUS SULFATE 325 MG TAB PO SCH (07:31)
[2021-11-18] MEDS: LACTOBACILLUS ACIDOPHILUS 1 GM PACK PO SCH ×2 (07:31→11:33)
[2021-11-18] MEDS: DOCUSATE SODIUM 100 MG CAP PO SCH (07:31)
[2021-11-18] MEDS: PANTOprazole 40 MG TAB PO SCH (07:32)
[2021-11-18] MEDS: CYANOCOBALAMIN (B-12) 500 MCG TABLET PO SCH (07:32)
[2021-11-18] MEDS: ASCORBIC ACID 500 MG TAB PO SCH (07:32)
[2021-11-18] MEDS: FINASTERIDE 5 MG TAB PO SCH (07:32)
[2021-11-18] MEDS: FUROSEMIDE 40 MG TAB PO SCH (07:32)
[2021-11-18] MEDS: ENOXAPARIN INJ 40 MG/0.4 ML SYR SQ SCH (11:33)
--- NOTE | 2021-11-18 13:21 | Hospitalist Progress Note ---
Date of Service November 18, 2021 Assessment & Plan (1) Cellulitis: Plan: Patient is a 71 yr male presents with lower extremity cellulitis. B/L LE Cellulitis: --Venous Doppler: No evidence of deep venous thrombus. --Arterial Doppler:There is no sonographic evidence of high-grade stenosis or focal vessel cutoff throughout the arteries of the right or left lower extremity. Blood cultures: No growth to date Continue Zosyn, daptomycin>>Transition to PO antibiotics Continue wound care Continue home diuretics Replace electrolytes as needed Advised to follow-up with wound clinic upon discharge Plan to discharge home today Chronic diastolic congestive heart failure: Continue lasix Monitor volume status Hypokalemia Continue potassium supplement BPH Continue finasteride and Flomax Prediabetes: HbA1C: 6.0 Diabetic diet GERD Continue PPI Hyperlipidemia: Holding statin while on daptomycin Morbid obesity: BMI:47 DVT Px: Lovenox SQ Code Status Full Code Admission and Anticipated Discharge Date Admission Date: November 13, 2021 Subjective Patient is seen and examined at bedside No new complaints Still has minimal leg seepage Denies any chest pain, shortness of breath, dizziness, nausea, abdominal pain Plan to discharge home today Review of Systems 2 Review of Systems: All systems reviewed & are unremarkable except as noted in Subjective Physical Exam Physical Exam: Physical Exam: Vitals signs as noted above General Appearance:Morbidly Obese, no apparent distress Head: normocephalic, Atraumatic Eyes: normal inspection, EOMI Neck: supple, Trachea midline Respiratory/Chest: Normal breath sounds, CTA, No accessory muscle use Cardiovascular: S1, S2, No murmur Abdomen/GI:Soft, Non tender, Bowel sounds present Extremities/Musculoskeletal:normal inspection, B/L LE erythema, edema, chronic venous stasis changes Neurologic/Psych:AAOX3, grossly no focal neurological deficits Skin: normal color, warm Results & Data Results & Data ([facility]) Vital Signs (Past 12 Hours) Vital Signs Temp Pulse Resp BP Pulse Ox 11/18/21 11:00 36.5 C 90 20 115/72 95 11/18/21 06:33 36.5 C 70 18 117/75 93 11/18/21 05:44 120/75 11/18/21 03:24 36.5 C 74 20 97/61 L 98 Laboratory Results [facility] 11/18/21 05:57 Sodium 138 Potassium 3.5 Chloride 102 Carbon Dioxide 29 BUN 16 Creatinine 0.92 Glucose 93 Calcium 8.8 (1) Cellulitis Laterality: left Site of cellulitis: extremity Site of cellulitis of extremity: lower extremity Qualified Code(s): L03.116 - Cellulitis of left lower limb
--- NOTE | 2021-11-18 13:30 | Discharge Summary ---
Date of Service November 18, 2021 Admission HPI Per Admitting Provider CHIEF COMPLAINT: Lower extremity cellulitis. HISTORY OF PRESENT ILLNESS: This is a 71-year-old male with past medical history significant for mixed hyperlipidemia, prediabetes, chronic venous insufficiency with grade 1 diastolic dysfunction, morbid obesity, GERD, history of renal colic, peripheral edema, onychogryphosis, iron deficiency anemia, history of esophagitis, history of COVID, severe acute respiratory syndrome secondary to COVID, presents with lower extremity cellulitis. The patient has lower extremity chronic skin changes, dry skin, edema. He says he has on and off infection going on for 1 year, now his left lower extremity has become very red, and that is the reason he came to the hospital. Denies any fever or chills. Able to ambulate on the leg. No other complaints. Currently, resting comfortably and hemodynamically stable. Denies any headache. No blurred visions, no earache, no runny nose, no sore throat, no cough, no neck pain, no chest pain. Gets short of breath on exertion. No nausea, no vomiting, no abdominal pain. Normal bowel and bladder movements. Admission Exam Per Admitting Provider PHYSICAL EXAMINATION: GENERAL: The patient is morbidly obese, not in acute distress. VITAL SIGNS: Temperature 36.7, pulse 94, respiratory rate 20, blood pressure 121/87, oxygen 98% on room air. HEENT: Pupils equal, round and reactive to light. Oral mucosa moist. NECK: No JVD, no neck masses. CARDIOVASCULAR: S1 and S2 heard. Regular rate and rhythm. No murmur, no gallop. RESPIRATORY SYSTEM: Normal AP diameter. No accessory muscle use. No wheezing, no crackles. ABDOMEN: Soft, bowel sounds present, nontender, no distention. CENTRAL NERVOUS SYSTEM: Cranial nerves II through XII are grossly intact, nonfocal. EXTREMITIES: Bilateral lower extremity chronic skin changes seen. Right leg has dry skin seen. Bilateral lower extremity edema present. Left leg below knee whole leg is erythematous. Principal Diagnosis Lower extremity cellulitis Hypokalemia Discharge Data Allergies Allergy/AdvReac Type Severity Reaction Status Date / Time adhesive tape Allergy Intermediate RASH/IRRITATION--PAPER Verified 11/13/21 17:14 TAPE OK Consultations 11/13/21 19:19 ED Decision to Admit Stat Ordered Studies 11/14/21 07:46 US venous doppler LE BI Urgent 11/14/21 15:03 US arterial duplex LE BI Routine Hospital Course (1) Cellulitis: Patient is a 71 yr male presents with lower extremity cellulitis. B/L LE Cellulitis: --Venous Doppler: No evidence of deep venous thrombus. --Arterial Doppler:There is no sonographic evidence of high-grade stenosis or fo robina vessel cutoff throughout the arteries of the right or left lower extremity. Blood cultures: No growth to date Continue Zosyn, daptomycin>>Transition to PO antibiotics Continue wound care Continue home diuretics Replace electrolytes as needed Advised to follow-up with wound clinic upon discharge Plan to discharge home today Chronic diastolic congestive heart failure: Continue lasix Monitor volume status Hypokalemia Continue potassium supplement BPH Continue finasteride and Flomax Prediabetes: HbA1C: 6.0 Diabetic diet GERD Continue PPI Hyperlipidemia: Holding statin while on daptomycin Morbid obesity: BMI:47 DVT Px: Lovenox SQ Code Status Full Code Total Time Total Time Spent Total Time Spent (In Minutes): 48 minutes Discharge Plan Discharge Items Patient Disposition: Home - Self-Care Reason For Visit: CELLULITIS Discharge Diagnosis: Lower extremity cellulitis Hypokalemia Activity: Per Instructions section Exercise/Sports: Gradually increase as tolerated Non-emergency contact: Primary Care Provider and Specialist Call non-emergency contact if: you have any medication questions, your symptoms worsen, your pain is concerning for you and you have a fever Follow-up/Referrals: Robles Meyer MD [Primary Care Provider] - (Date & Time 11/23/2021 2:20 PM Provider Manuel Willams MD [facility] ) Diet: Carb Consistent or DM2 and Heart Healthy Addtl Attending Provider Instructions: Follow-up with your primary care physician on 11/23/2021 2:20 PM Follow-up with your physician at wound care in 1 week as advised --- Your Blood cultures are pending at the time of discharge. Follow-up with your physician for results. --- Complete antibiotic course as prescribed. Seek immediate medical attention if your symptoms reoccur or worsen Please take all medications as instructed on discharge list below. Please call if you have any questions or problems. You can reach a [facility] hospitalist on duty at [facility] 24 hours a day by calling [phone] Pending Studies at Discharge: Yes Studies:: Blood Culture Stand-Alone Forms: My [facility], Smoking Cessation Medications and DC Order Prescriptions: New ascorbic acid (vitamin C) [Vitamin C] 500 mg Tablet 250 mg PO QAM Qty: 30 RF: 0 doxycycline hyclate 100 mg tablet 100 mg PO BID Qty: 12 RF: 0 cefdinir 300 mg capsule 300 mg PO BID Qty: 12 RF: 0 Continued furosemide [Lasix] 40 mg Tablet 40 mg PO BID RF: 0 potassium chloride 10 mEq Capsule, Extended Release 30 meq PO DAILY RF: 0 cyanocobalamin (vitamin B-12) [Vitamin B-12] 1,000 mcg Tablet 1,000 mcg PO DAILY RF: 0 omeprazole 40 mg Capsule,Delayed Release(Dr/Ec) 40 mg PO DAILY RF: 0 tamsulosin [Flomax] 0.4 mg Capsule 0.4 mg PO DAILY RF: 0 docusate sodium [Colace] 100 mg Capsule 100 mg PO DAILY RF: 0 finasteride 5 mg Tablet 5 mg PO DAILY RF: 0 sodium hypochlorite 0.25 % Solution 1 irrig TOPICAL DIRECTED PRN (Reason: LEG WOUNDS NEEDED PER [facility]) RF: 0 rosuvastatin 5 mg Tablet 5 mg PO DAILY RF: 0 Iron W/Vitamin C 1 tab PO DAILY RF: 0 Discharge Orders: Discharge Order (Routine); Ordered 11/18/21 Ordered By: Rodrigo Irving/Other Patient Handouts: Prediabetes, 5 Steps for Eating Healthier Admission Data Admit Date/Time: 11/13/21 20:57 Attending Provider: Rodrigo Pereyra Admit Provider: Jj Rod Primary Care Provider: Robles Meyer Other Providers: Jj Rod
== END 2021-11-18 16:16 | disposition home or self-care (01) | DRG 603 ==
LOC: ED 16:24 → 2W 20:51
DX: E66.01 Morbid (severe) obesity due to excess calories; R73.03 Prediabetes; I50.32 Chronic diastolic (congestive) heart failure; L03.115 Cellulitis of right lower limb; K21.9 Gastro-esophageal reflux disease without esophagitis; Z68.42 Body mass index [BMI] 45.0-49.9, adult; E78.5 Hyperlipidemia, unspecified; L03.116 Cellulitis of left lower limb; Z86.16 Personal history of COVID-19; E87.6 Hypokalemia; N40.0 Benign prostatic hyperplasia without lower urinary tract symptoms